=== PATIENT | male | born 1965 | race Caucasian/White ===

== ENCOUNTER 2019-07-26 20:44 | Emergency (ER) | payer SELFPAY ==
[~2019-07-26] VITALS: Ht 177.8 cm; Wt 74.8 kg
[2019-07-26 20:59] LABS: BASOPHILS % (AUTO) 0 % (0-10); EOSINOPHILS % (AUTO) 0 % (0-10); HEMATOCRIT 48 % (40-54); HEMOGLOBIN 16.3 G/DL (13.3-17.7); LYMPHOCYTES # (AUTO) 1.3 X 10^3 (1.0-4.0); LYMPHOCYTES % (AUTO) 9 % (12-44); MEAN CORPUSCULAR HEMOGLOBIN 30 PG (25-34); MEAN CORPUSCULAR HGB CONC 34 G/DL (32-36); MEAN CORPUSCULAR VOLUME 89 FL (80-99); MEAN PLATELET VOLUME 9.5 FL (7.4-10.4); MONOCYTES # (AUTO) 0.7 X 10^3 (0.0-1.0); MONOCYTES % (AUTO) 5 % (0-12); NEUTROPHILS # (AUTO) 12.6 X 10^3 (1.8-7.8); NEUTROPHILS % (AUTO) 86 % (42-75); PLATELET COUNT 252 10^3/uL (130-400); WHITE BLOOD COUNT 14.6 10^3/uL (4.3-11.0)
[2019-07-26] MEDS ORDERED: KETOROLAC 30 MG/ML VIAL IVP ONE (21:00)
[2019-07-26] MEDS ORDERED: NS IV 1000 ML 1,000 ML IV SCH (21:00)
[2019-07-26] MEDS ORDERED: fentaNYL INJECTION 100 MCG/2 ML AMP IVP ONE (21:30)
--- NOTE | 2019-07-26 21:30 | ED GU-Female ---
General Chief Complaint: - Urinary Stated Complaint: BACK PAIN, VOMITING Nursing Triage Note: Patient brought to ER room 2 via wheelchair with complaint of left lower quadrant abdominal pain that began this morning. Patient states this pain radiates into the groin/pelvis area and he has had nausea and vomiting today. Patient has had difficulty with urination today. Nursing Sepsis Screen: No Definite Risk Source: patient Exam Limitations: no limitations History of Present Illness Date Seen by Provider: Jul 26, 2019 Time Seen by Provider: 21:00 Initial Comments To ER with progressively worsening left lower quadrant/suprapubic abdominal pain that began this morning. Pain radiates to the groin and pelvis, has had nausea and vomiting today. Difficulty with urination. Timing/Duration: this afternoon Severity/Quality: moderate Location: unknown Radiation: none Activities at Onset: none Prior Genitourinary Problems: none Associated Symptoms: dysuria Allergies and Home Medications Allergies Coded Allergies: No Known Drug Allergies (Unverified , 07/26/19) Patient Home Medication List Home Medication List Reviewed: Yes Review of Systems Review of Systems Constitutional: see HPI EENTM: see HPI Respiratory: no symptoms reported Cardiovascular: no symptoms reported Genitourinary: see HPI Musculoskeletal: no symptoms reported Skin: no symptoms reported Psychiatric/Neurological: No Symptoms Reported Endocrine: No Symptoms Reported Hematologic/Lymphatic: No Symptoms Reported Past Ljqayab-Mdeujl-Awxwfo Hx Patient Social History Alcohol Use: Denies Use Recreational Drug Use: Yes Drug of Choice: marijuana Smoking Status: Current Everyday Smoker Type Used: Cigarettes 2nd Hand Smoke Exposure: Yes Recent Foreign Travel: No Contact w/Someone Who Travel: No Recent Infectious Disease Expo: No Recent Hopitalizations: No Seasonal Allergies Seasonal Allergies: No Past Medical History Surgeries: Yes (urethral repair) Respiratory: No Cardiac: No Neurological: No Genitourinary: Yes Kidney Stones Gastrointestinal: No Musculoskeletal: No Endocrine: No HEENT: No Cancer: No Psychosocial: No Physical Exam Vital Signs Vital Signs - First Documented 07/26/19 20:44 Temp 97.9 Pulse 63 Resp 20 B/P (MAP) 108/73 (85) Pulse Ox 100 O2 Delivery Room Air Capillary Refill : Less Than 3 Seconds Height, Weight, BMI Height: 5'10.00" Weight: 165lbs. oz. [id number]; BMI Method:Stated General Appearance: WD/WN, no apparent distress HEENT: PERRL/EOMI, normal ENT inspection Respiratory: no respiratory distress, no accessory muscle use Gastrointestinal: normal bowel sounds, non tender, soft Neurologic/Psychiatric: alert, normal mood/affect, oriented x 3 Skin: normal color, warm/dry Progress/Results/Core Measures Suspected Sepsis Recent Fever Within 48 Hours: No Infection Criteria Present: None New/Unexplained Altered Menta: No Sepsis Screen: No Definite Risk SIRS Temperature:97.9 Pulse: 63 Respiratory Rate: 20 Laboratory Tests 07/26/19 20:50: White Blood Count 14.6H Blood Pressure 108 /73 Mean: 85 Laboratory Tests 07/26/19 20:50: Creatinine 1.07, Platelet Count 252, Total Bilirubin 0.6 Results/Orders Lab Results Laboratory Tests Test 07/26/19 20:50 07/26/19 22:05 Range/Units White Blood Count 14.6 H 4.3-11.0 10^3/uL Red Blood Count 5.38 4.35-5.85 10^6/uL Hemoglobin 16.3 13.3-17.7 G/DL Hematocrit 48 40-54 % Mean Corpuscular Volume 89 80-99 FL Mean Corpuscular Hemoglobin 30 25-34 PG Mean Corpuscular Hemoglobin Concent 34 32-36 G/DL Red Cell Distribution Width 13.0 10.0-14.5 % Platelet Count 252 130-400 10^3/uL Mean Platelet Volume 9.5 7.4-10.4 FL Neutrophils (%) (Auto) 86 H 42-75 % Lymphocytes (%) (Auto) 9 L 12-44 % Monocytes (%) (Auto) 5 0-12 % Eosinophils (%) (Auto) 0 0-10 % Basophils (%) (Auto) 0 0-10 % Neutrophils # (Auto) 12.6 H 1.8-7.8 X 10^3 Lymphocytes # (Auto) 1.3 1.0-4.0 X 10^3 Monocytes # (Auto) 0.7 0.0-1.0 X 10^3 Eosinophils # (Auto) 0.0 0.0-0.3 10^3/uL Basophils # (Auto) 0.0 0.0-0.1 10^3/uL Sodium Level 143 135-145 MMOL/L Potassium Level 3.7 3.6-5.0 MMOL/L Chloride Level 111 H 98-107 MMOL/L Carbon Dioxide Level 20 L 21-32 MMOL/L Anion Gap 12 5-14 MMOL/L Blood Urea Nitrogen 18 7-18 MG/DL Creatinine 1.07 0.60-1.30 MG/DL Estimat Glomerular Filtration Rate > 60 BUN/Creatinine Ratio 17 Glucose Level 116 H 70-105 MG/DL Calcium Level 9.3 8.5-10.1 MG/DL Corrected Calcium 9.2 8.5-10.1 MG/DL Total Bilirubin 0.6 0.1-1.0 MG/DL Aspartate Amino Transf (AST/SGOT) 24 5-34 U/L Alanine Aminotransferase (ALT/SGPT) 38 0-55 U/L Alkaline Phosphatase 123 40-136 U/L Total Protein 6.3 L 6.4-8.2 GM/DL Albumin 4.1 3.2-4.5 GM/DL Urine Color DAVINA H Urine Clarity SL CLOUDY Urine pH 8 5-9 Urine Specific [place] 1.015 L 1.016-1.022 Urine Protein 1+ H NEGATIVE Urine Glucose (UA) NEGATIVE NEGATIVE Urine Ketones 2+ H NEGATIVE Urine Nitrite NEGATIVE NEGATIVE Urine Bilirubin NEGATIVE NEGATIVE Urine Urobilinogen NORMAL NORMAL MG/DL Urine Leukocyte Esterase 1+ H NEGATIVE Urine RBC (Auto) 5+ H NEGATIVE Urine RBC TNTC H /HPF Urine WBC RARE /HPF Urine Squamous Epithelial Cells 2-5 /HPF Urine Crystals NONE /LPF Urine Bacteria NEGATIVE /HPF Urine Casts NONE /LPF Urine Mucus NEGATIVE /LPF Urine Culture Indicated NO My Orders Orders - FÉLIX ESTRADA APRN Ketorolac Injection (Toradol Injection) (07/26/19 21:00) Ns Iv 1000 Ml (Sodium Chloride 0.9%) (07/26/19 21:00) Cbc With Automated Diff (07/26/19 20:51) Comprehensive Metabolic Panel (07/26/19 20:51) Ua Culture If Indicated (07/26/19 20:51) Ed Iv/Invasive Line Start (07/26/19 20:51) Ct Abd/Pelvis Wo(Kidney Stone) (07/26/19 20:51) Fentanyl Injection (Sublimaze Injection (07/26/19 21:30) Ondansetron Injection (Zofran Injectio (07/26/19 22:30) Ondansetron Injection (Zofran Injectio (07/26/19 22:09) Medications Given in ED Current Medications Medications Dose Ordered Sig/Velma Route Start Time Stop Time Status Last Admin Dose Admin Fentanyl Citrate 50 mcg ONCE ONCE IVP 07/26/19 21:30 07/26/19 21:31 DC 07/26/19 21:32 50 MCG Ketorolac Tromethamine 15 mg ONCE ONCE IVP 07/26/19 21:00 07/26/19 21:01 DC 07/26/19 21:00 15 MG Ondansetron HCl 8 mg ONCE ONCE IVP 07/26/19 22:30 07/26/19 22:31 07/26/19 22:19 8 MG Vital Signs/I&O 07/26/19 20:44 Temp 97.9 Pulse 63 Resp 20 B/P (MAP) 108/73 (85) Pulse Ox 100 O2 Delivery Room Air Capillary Refill : Less Than 3 Seconds Blood Pressure Mean: 85 Departure Impression Primary Impression: Ureteral stone Disposition: HOME, SELF-CARE Condition: Stable Departure-Patient Inst. Decision time for Depature: 22:18 Referrals: MAGALI COOPER MD (PCP/Family) Primary Care Physician Patient Instructions: Kidney Stones (DC) Add. Discharge Instructions: 1. Return to ER for any concerns 2. Follow-up with your doctor next week. All discharge instructions reviewed with patient and/or family. Voiced understanding. FÉLIX ESTRADA PAID INTERN Jul 26, 2019 21:30
[2019-07-26 21:38] LABS: ALANINE AMINOTRANSFERASE 38 U/L (0-55); ALBUMIN 4.1 GM/DL (3.2-4.5); ALKALINE PHOSPHATASE 123 U/L (40-136); BILIRUBIN,TOTAL 0.6 MG/DL (0.1-1.0); BUN/CREATININE RATIO 17; CALCIUM 9.3 MG/DL (8.5-10.1); CARBON DIOXIDE 20 MMOL/L (21-32); CHLORIDE 111 MMOL/L (98-107); CREATININE SERUM 1.07 MG/DL (0.60-1.30); GFR ESTIMATED > 60; GLUCOSE 116 MG/DL (70-105); POTASSIUM 3.7 MMOL/L (3.6-5.0); SODIUM 143 MMOL/L (135-145); TOTAL PROTEIN 6.3 GM/DL (6.4-8.2)
--- NOTE | 2019-07-26 21:40 | Diagnostic Imaging Report ---
PROCEDURE: CT urinary tract, rule out kidney stone. TECHNIQUE: Multiple contiguous axial images were obtained through the abdomen and pelvis without the use of intravenous contrast. Auto Exposure Controls were utilized during the CT exam to meet ALARA standards for radiation dose reduction. INDICATION: Low back pain and vomiting. No comparison is available. FINDINGS: The lung bases appear clear without evidence of infiltrate or effusion. The liver demonstrates no evidence of a focal intrahepatic abnormality. The gallbladder is nondistended without biliary dilatation. Spleen is normal in size. Pancreas demonstrates no focal abnormality. There is a low-density right adrenal nodule compatible with an adenoma. There is a nonobstructive 3 mm calculus within the mid right kidney. There is no right-sided hydronephrosis. There is, however, also a stone present at the right ureterovesicular junction that may now be within the bladder itself. The left kidney demonstrates minimal perinephric stranding and some slight prominence of the left ureter. This stone within the bladder conceivably could have passed via the left ureter. The small and large bowel are normal in caliber without evidence of obstruction. There is diverticulosis but no evidence of diverticulitis. There is no focal bowel thickening. There are no findings of free air, free fluid or abscess. The appendix is normal. No pathologic adenopathy. Aorta normal in caliber. No acute or suspicious osseous abnormality is evident. IMPRESSION: 1. There is a stone present within the urinary bladder. While this is just medial to the right sided ureterovesicular junction this may have passed from the left and now lies dependently within the urinary bladder. There is mild left-sided hydroureter and there is stranding around the left kidney which appears minimally edematous. The right kidney has a nonobstructive stone within its mid calyces but there is no evidence of right hydronephrosis or hydroureter. 2. No evidence of bowel obstruction. The appendix is normal. There is no abnormal bowel thickening. There are no findings of free air, free fluid or abscess. Uncomplicated diverticulosis noted. Dictated by: Dictated on workstation # [id number]
--- NOTE | 2019-07-26 22:00 | NUR ---
Patient states pain has greatly improved since Fentanyl given. Patient still not able to give UA.
[2019-07-26] MEDS ORDERED: ONDANSETRON 4 MG/2 ML (SDV) Z0FRAN ONE (22:09)
[2019-07-26 22:14] LABS: BILIRUBIN,URINE NEGATIVE (NEGATIVE); COLOR,URINE AMBER; GLUCOSE, URINE (UA) NEGATIVE (NEGATIVE); KETONES,URINE 2+ (NEGATIVE); LEUKOCYTE ESTERASE ,URINE 1+ (NEGATIVE); NITRITE,URINE NEGATIVE (NEGATIVE); PH,URINE 8 (5-9); PROTEIN,URINE 1+ (NEGATIVE); UROBILINOGEN,URINE NORMAL (NORMAL)
[2019-07-26 22:29] LABS: BACTERIA,URINE NEGATIVE /HPF; CLARITY,URINE SL CLOUDY; RBC,URINE TNTC /HPF; WBC,URINE RARE /HPF
[2019-07-26] MEDS ORDERED: ONDANSETRON 4 MG/2 ML (SDV) Z0FRAN IVP ONE (22:30)
[2019-07-26 22:41] VITALS: BP 109/70
== END 2019-07-26 22:42 | disposition home or self-care (01) ==
LOC: ER 20:47
DX: N20.1 Calculus of ureter (principal); F17.210 Nicotine dependence, cigarettes, uncomplicated; Z87.442 Personal history of urinary calculi
CPT/HCPCS: 36415; 74176; 80053; 81000; 85025; 96361; 96374; 96375